=== PATIENT | male | born 1960 | race Caucasian/White ===

== ENCOUNTER → 2016-10-08 | Outpatient (CLI) | payer BC ==
[~2016-10-08] VITALS: Ht 188 cm; Wt 102.1 kg
[~2016-10-08] MED LIST: ASPI1TAB PO; ATOR40TA PO; INSUHUMDS SC; MULT1TAB11 PO; PROPOFOL 200 MG/20 ML VIAL As Ordered ONE; RAMI10CA PO
[2016-10-08] MEDS: NS 1,000 ML IV SCH ×2 (07:15→07:24)
--- NOTE | 2016-10-08 07:59 | ROOR ---
Patient Name: Hema Ravi Procedure Date: 10/08/2016 7:32 AM Date of : 1960 Age: 56 Room: [facility] Gender: Male Note Status: Finalized Procedure: Colonoscopy to Cecum Indications: Screening for colorectal malignant neoplasm Providers: Michael Huston MD Referring MD: Gerda Stovall DO Requesting Provider: Medicines: Monitored Anesthesia Care Complications: No immediate complications. Procedure: Pre-Anesthesia Assessment: - The heart rate, respiratory rate, oxygen saturations, blood pressure, adequacy of pulmonary ventilation, and response to care were monitored throughout the procedure. The Colonoscope was introduced through the anus and advanced to the cecum, identified by appendiceal orifice and ileocecal valve. The colonoscopy was performed without difficulty. The patient tolerated the procedure well. The quality of the bowel preparation was excellent. Findings: The perianal and digital rectal examinations were normal. Non-bleeding internal hemorrhoids were found during retroflexion. The hemorrhoids were small and Grade I (internal hemorrhoids that do not prolapse). No other significant abnormalities were identified in a careful examination of the remainder of the colon. The exam was otherwise without abnormality on direct and retroflexion views. Impression: - Non-bleeding internal hemorrhoids. - The examination was otherwise normal on direct and retroflexion views. - No specimens collected. - The exam was otherwise normal to the cecum. Recommendation: - Patient has a contact number available for emergencies. The signs and symptoms of potential delayed complications were discussed with the patient. Return to normal activities tomorrow. Written discharge instructions were provided to the patient. - High fiber diet. - Discharge patient to home. - Continue present medications. - Repeat colonoscopy in 10 years for screening purposes. - Return to referring physician. - The findings and recommendations were discussed with the patient's family. Michael Huston MD Michael Huston MD 10/08/2016 7:59:18 AM This report has been signed electronically. Number of Addenda: 0 Note Initiated On: 10/08/2016 7:32 AM Estimated Blood Loss: Estimated blood loss: none.
[2016-10-08 08:16] VITALS: BP 115/87
== END | disposition home or self-care (01) ==
LOC: M OPP 06:35
PROVIDERS: ATTEND Internal Medicine Gastroenterology
DX: Z12.11 Encounter for screening for malignant neoplasm of colon (principal); K64.0 First degree hemorrhoids; E78.00 Pure hypercholesterolemia, unspecified; E11.9 Type 2 diabetes mellitus without complications; Z79.82 Long term (current) use of aspirin; Z79.4 Long term (current) use of insulin; Z79.899 Other long term (current) drug therapy

== ENCOUNTER → 2017-07-12 | Outpatient (REF) | payer BC ==
[~2017-07-12] MED LIST changes: -ATOR40TA PO; +ATOR40TA75 PO; -PROPOFOL 200 MG/20 ML VIAL As Ordered ONE
[2017-07-18 00:06] LABS: Lyme Disease IgG/IgM Antibodie <0.91 ISR (0.00-0.90); Lyme Disease IgM Ab Quantitati <0.80 index (0.00-0.79)
== END ==
LOC: M LAB REF 17:03
PROVIDERS: ATTEND Family Medicine
DX: S80.861A Insect bite (nonvenomous), right lower leg, initial encounter (principal); X58.XXXA Exposure to other specified factors, initial encounter; Y92.89 Other specified places as the place of occurrence of the external cause; Y93.89 Activity, other specified; Y99.8 Other external cause status

== ENCOUNTER 2019-06-25 15:26 | Emergency (ER) | payer BC, OTHER ==
[~2019-06-25] VITALS: Ht 188 cm; Wt 98.3 kg
[~2019-06-25 15:26] MED LIST changes: -ASPI1TAB PO; +ASPI81TA26 PO; -RAMI10CA PO; +RAMI1CAP26 PO
[2019-06-25] MEDS ORDERED: LIDOCAINE 1% MDV 20ML VIAL IM ONE (17:30)
[2019-06-25] MEDS ORDERED: ADACEL/BOOSTRIX VACCINE (DIPHTH/PERTUSS/ACELL/TETANUS)0.5ML SYR (90715) IM ONE (17:30)
--- NOTE | 2019-06-25 17:52 | REP ---
Right finger four views: There is soft tissue injury at the distal tip. There is no radiopaque foreign body. There is no fracture or dislocation. 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 Electronically Signed by Hema Moore MD 06/25/2019 05:43 P
[2019-06-25] MEDS ORDERED: KEFL500C17 PO (18:21)
[2019-06-25 18:24] VITALS: BP 136/72
[2019-06-25] MEDS ORDERED: CEPHALEXIN 500 MG CAP PO ONE (18:30)
== END 2019-06-25 18:33 | disposition home or self-care (01) ==
LOC: M ED 15:26
DX: S61.212A Laceration without foreign body of right middle finger without damage to nail, initial encounter (principal); W26.8XXA Contact with other sharp object(s), not elsewhere classified, initial encounter; Y92.89 Other specified places as the place of occurrence of the external cause; Y99.0 Civilian activity done for income or pay; E11.9 Type 2 diabetes mellitus without complications; Z79.899 Other long term (current) drug therapy; Z79.82 Long term (current) use of aspirin; Z79.4 Long term (current) use of insulin

== ENCOUNTER → 2024-06-02 | Outpatient (REF) | payer OTHER, BC ==
[~2024-06-02] MED LIST changes: +KEFL500C17 PO; +RAMI10CA64 PO; -RAMI1CAP26 PO
[2024-06-08 05:53] LABS: Anaplasma phagocytophilum NOT DETECTED (NOT DETECT); Babesia microti NOT DETECTED (NOT DETECT); Ehrlichia chaffeensis NOT DETECTED (NOT DETECT)
[2024-06-08 14:22] LABS: BORRELIA SPECIES DNA NOT DETECTED (NOT DETECT)
== END ==
LOC: M LAB REF 16:49
PROVIDERS: ATTEND Family Medicine
DX: Z11.59 Encounter for screening for other viral diseases (principal)

== ENCOUNTER → 2025-01-07 | Outpatient (CLI) | payer BC ==
[~2025-01-07] MED LIST changes: +PROHANCE 279.3MG/ML 15ML VIAL As Ordered ONE; +PROHANCE 279.3MG/ML 5ML VIAL As Ordered ONE
== END ==
LOC: M RAD 15:57
PROVIDERS: ATTEND Physician Assistant
DX: R97.20 Elevated prostate specific antigen [PSA] (principal); K40.20 Bilateral inguinal hernia, without obstruction or gangrene, not specified as recurrent; K57.30 Diverticulosis of large intestine without perforation or abscess without bleeding
CPT/HCPCS: 72197; A9576

== ENCOUNTER → 2025-04-21 | Outpatient (REF) | payer MEDICARE ==
[~2025-04-21] MED LIST changes: -PROHANCE 279.3MG/ML 15ML VIAL As Ordered ONE; -PROHANCE 279.3MG/ML 5ML VIAL As Ordered ONE
== END ==
LOC: M SFHCDERM 13:19
PROVIDERS: ATTEND Nurse Practitioner Family
DX: D48.9 Neoplasm of uncertain behavior, unspecified (principal)